=== PATIENT | male | born 1970 | race Caucasian/White ===

== ENCOUNTER 2016-11-29 01:09 | Inpatient (IN) | payer OTHER ==
[2016-11-29] VITALS (7 sets, daily range): BP systolic 126–136; BP diastolic 72–83; PULSE 56–67; RESP 18–19; TEMP 97.8; Ht 167.6 cm; Wt 86.4 kg
[~2016-11-29] VITALS: Ht 167.6 cm; Wt 86.4 kg
[2016-11-29] MEDS ORDERED: ASPIRIN 325 MG TAB PO STA (01:26)
[2016-11-29] MEDS ORDERED: morphine 4 MG/ML VIAL IV STA (01:26)
[2016-11-29] MEDS ORDERED: ONDANSETRON 4 MG INJ IV STA (01:26)
[2016-11-29 01:38] LABS: ADD SCAN DIFF NO
[2016-11-29 01:42] LABS: BASOPHILS % 0.4 % (0.0-2.0); EOSINOPHILS # 0.2 10^3/ul (0.0-0.5); EOSINOPHILS % 2.1 % (0.0-7.0); HEMATOCRIT 43.7 % (42.0-52.0); HEMOGLOBIN 15.8 g/dl (14.0-18.0); LYMPHOCYTES # 2.6 10^3/ul (0.8-2.9); LYMPHOCYTES % 28.8 % (15.0-51.0); MEAN CORPUSCULAR HEMOGLOBIN 32.5 pg (29.0-33.0); MEAN CORPUSCULAR HGB CONC 36.2 g/dl (32.0-37.0); MEAN CORPUSCULAR VOLUME 89.9 fl (82.0-101.0); MEAN PLATELET VOLUME 10.2 fl (7.4-10.4); MONOCYTE # 0.7 10^3/ul (0.3-0.9); MONOCYTES % 7.3 % (0.0-11.0); NEUTROPHIL # 5.6 10^3/ul (1.6-7.5); NEUTROPHILS % 61.1 % (39.0-77.0); PLATELET COUNT 325 10^3/UL (140-415); RED BLOOD COUNT 4.86 10^6/ul (4.70-6.10); RED CELL DISTRIBUTION WIDTH 11.9 % (11.5-14.5); WHITE BLOOD COUNT 9.1 10^3/ul (4.8-10.8)
[2016-11-29 01:54] LABS: INR 0.94; PROTIME 12.6 Sec (12.2-14.2)
[2016-11-29 01:55] LABS: PARTIAL THROMBOPLASTIN TIME 24.7 Sec (25.0-35.0)
[2016-11-29] MEDS ORDERED: ACET325T45 PO (01:55)
[2016-11-29] MEDS ORDERED: ASPI325T4 PO (01:55)
[2016-11-29 01:56] LABS: ALBUMIN 4.6 g/dl (3.3-4.9); ALBUMIN/GLOBULIN RATIO 1.21; BILIRUBIN,INDIRECT 0.5 mg/dl (0-1.1); BILIRUBIN,TOTAL 0.5 mg/dl (0.2-1.3); CALCIUM 10.9 mg/dl (8.4-10.2); CREATININE 0.78 mg/dl (0.61-1.24); POTASSIUM 3.9 mmol/L (3.5-5.1); TOTAL PROTEIN 8.4 g/dl (6.1-8.1)
[2016-11-29 02:08] LABS: TROPONIN-I 0.089 ng/ml (0.00-0.12)
--- NOTE | 2016-11-29 02:42 | RADRPT ---
PROCEDURE: CHEST - 1 VIEW CLINICAL INDICATION: 46-year-old male with chest pain. TECHNIQUE: A single frontal AP semi-erect portable view of the chest was performed. The images we re reviewed on a PACS workstation. COMPARISON: None. FINDINGS: There is a shallow inspiration accentuating the heart size. Accounting for this, the cardiomediasti nal silhouette is prominent. There is mild bibasilar subsegmental atelectasis. There is no evidenc e for an infiltrate. There is no evidence for congestive heart failure. There is no evidence for pn eumothorax. The osseous structures are intact. IMPRESSION: Shallow inspiration with mild bibasilar subsegmental atelectasis. .Abe Silverman MD, Date Time Electronically viewed and signed by .Abe Silverman MD, on 11/29/2016 02:42 .M/
--- NOTE | 2016-11-29 04:54 | ERA ---
ER Documentation Chief Complaint Date/Time DATE: 11/29/16 TIME: 04:53 Chief Complaint pressure like chest pain x 2 days HPI This is a 46-year-old male pressure-like chest pain on and off for the past 2 days. Pain is mild to moderate intensity, pressure-like, substernal no exacerbating or alleviating factors. Mild associated shortness of breath. No diaphoresis. No nausea no vomiting no fevers no chills. No other current complaints. ROS All systems reviewed and are negative except as per history of present illness. Medications Home Meds Reported Medications Aspirin* (Aspirin*) 325 Mg Tablet, 325 MG PO QID Y for PAIN, TAB 11/29/16 Acetaminophen* (Acetaminophen*) 325 Mg Tablet, 325 MG PO Q4H Y for PAIN AND OR ELEVATED TEMP, #30 TAB 11/29/16 Allergies Allergies: Coded Allergies: No Known Allergy (Unverified , 11/29/16) PMhx/Soc History of Surgery: No Anesthesia Reaction: No Hx Neurological Disorder: No Hx Respiratory Disorders: No Hx Cardiac Disorders: No Hx Psychiatric Problems: No Hx Miscellaneous Medical Probl: No Hx Alcohol Use: No Hx Substance Use: No Hx Tobacco Use: Yes Smoking Status: Current some day smoker Physical Exam Vitals Vital Signs Date Time Temp Pulse Resp B/P Pulse Ox O2 Delivery O2 Flow Rate FiO2 11/29/16 03:32 65 19 153/95 98 Nasal Cannula 2.0 11/29/16 01:27 Nasal Cannula 2 11/29/16 01:13 98.3 65 20 151/84 98 Physical Exam Const: [] Head: Atraumatic Eyes: Normal Conjunctiva ENT: Normal External Ears, Nose and Mouth. Neck: Full range of motion..~ No meningismus. Resp: Clear to auscultation bilaterally Cardio: Regular rate and rhythm, no murmurs Abd: Soft, non tender, non distended. Normal bowel sounds Skin: No petechiae or rashes Back: No midline or flank tenderness Ext: No cyanosis, or edema Neur: Awake and alert Psych: Normal Mood and Affect Result Diagram: 11/29/167 11/29/16 0127 Results 24 hrs Laboratory Tests Test 11/29/16 01:27 White Blood Count 9.110^3/ul Red Blood Count 4.8610^6/ul Hemoglobin 15.8g/dl Hematocrit 43.7% Mean Corpuscular Volume 89.9fl Mean Corpuscular Hemoglobin 32.5pg Mean Corpuscular Hemoglobin Concent 36.2g/dl Red Cell Distribution Width 11.9% Platelet Count 62517^3/UL Mean Platelet Volume 10.2fl Neutrophils % 61.1% Lymphocytes % 28.8% Monocytes % 7.3% Eosinophils % 2.1% Basophils % 0.4% Nucleated Red Blood Cells % 0.0/100WBC Neutrophils # 5.610^3/ul Lymphocytes # 2.610^3/ul Monocytes # 0.710^3/ul Eosinophils # 0.210^3/ul Basophils # 0.010^3/ul Nucleated Red Blood Cells # 0.010^3/ul Prothrombin Time 12.6Sec Prothrombin Time Ratio 1.0 INR International Normalized Ratio 0.94 Activated Partial Thromboplast Time 24.7Sec Sodium Level 137mmol/L Potassium Level 3.9mmol/L Chloride Level 99mmol/L Carbon Dioxide Level 27mmol/L Anion Gap 15 Blood Urea Nitrogen 17mg/dl Creatinine 0.78mg/dl Glucose Level 113mg/dl Calcium Level 10.9mg/dl Total Bilirubin 0.5mg/dl Direct Bilirubin 0.00mg/dl Indirect Bilirubin 0.5mg/dl Aspartate Amino Transf (AST/SGOT) 34IU/L Alanine Aminotransferase (ALT/SGPT) 63IU/L Alkaline Phosphatase 57IU/L Troponin I 0.089ng/ml B-Type Natriuretic Peptide 50PG/ML Total Protein 8.4g/dl Albumin 4.6g/dl Globulin 3.80g/dl Albumin/Globulin Ratio 1.21 Current Medications Medications (Trade) Dose Ordered Sig/Jessica Route PRN Reason Start Time Stop Time Status Last Admin Dose Admin Aspirin (Aspirin) 325 mg ONCE STAT PO 11/29/16 01:26 11/29/16 01:27 DC 11/29/16 01:43 Morphine Sulfate (morphine) 4 mg ONCE STAT IV 11/29/16 01:26 11/29/16 01:28 DC Ondansetron HCl (Zofran Inj) 4 mg ONCE STAT IV 11/29/16 01:26 11/29/16 01:28 DC Procedures/MDM EKG: Rate/Rhythm: Normal Sinus Rhythm QRS, ST, T-waves: No changes consistent w/ acute ischemia Impression: No evidence of ischemia or arrhythmia Chest X-ray 1V Interpreted by me: Soft Tissue: No acute abnormalities Bones: No acute abnormalities Mediastinum/Cardiac Silhouette/Lungs: No acute abnormalities Patient's symptoms are concerning for cardiac cause will require inpatient workup and continuous monitoring. Further w/u for ischemia, arrhythmia, PE or dissection will be deferred to the inpatient team. Accepting Care Team: Current data and ongoing care discussed. Time: 5 AM Primary Provider: Hospitalist Consulting: [XOXOXO] Outstanding Data: none Departure Diagnosis: Primary Impression: Chest pain Qualified Code: R07.9 - Chest pain, unspecified type Condition: Serious AUGUST ZHU November 29, 2016 04:54
[2016-11-29] MEDS ORDERED: NACL 0.9% 3 ML SYG IV SCH (09:00)
[2016-11-29] MEDS ORDERED: ACETAMINOPHEN 325 MG TAB PO PRN (09:00)
[2016-11-29] MEDS ORDERED: ONDANSETRON 4 MG INJ IV PRN (09:00)
[2016-11-29] MEDS ORDERED: ALBUTEROL/IPRATROPIUM (NEB) 3 ML AMP HHN PRN (09:00)
[2016-11-29] MEDS ORDERED: ENOXAPARIN 40 MG/0.4 ML SYG SC SCH (09:00)
[2016-11-29] MEDS ORDERED: morphine 2 MG INJ IV PRN (09:00)
[2016-11-29] MEDS ORDERED: ASPIRIN 81 MG TAB PO SCH (09:00)
[2016-11-29] MEDS ORDERED: NITROGLYCERIN (SL) 0.4 MG TAB SL PRN (09:00)
[2016-11-29 10:37] LABS: TROPONIN-I 0.121 ng/ml (0.00-0.12)
[2016-11-29 10:47] LABS: CK-MB 2.47 ng/ml (0.0-2.4)
[2016-11-29 15:23] LABS: CK-MB 2.12 ng/ml (0.0-2.4)
[2016-11-29 15:24] LABS: TROPONIN-I 0.115 ng/ml (0.00-0.12)
[2016-11-29] MEDS ORDERED: HEPARIN 1000 UNITS/ML 10 ML INJ IV PRN (15:30)
[2016-11-29] MEDS ORDERED: HEPARIN 1000 UNITS/ML 10 ML INJ IV ONE (15:30)
--- NOTE | 2016-11-29 16:00 | PN ---
Date/Time of Note Date/Time of Note DATE: 11/29/16 TIME: 15:52 Assessment/Plan VTE Prophylaxis VTE Prophylaxis Intervention: heparin Lines/Catheters IV [facility] Assessment/Plan Chief Complaint/Hosp Course Assessment and plan 1. Non-ST elevated myocardial infarction. Follow-up on echocardiogram. Trend serial troponin. Sales And Service Associate consulted. On BILLY inhibitor. Noted to be bradycardic. Follow-up with cardiology recommendations. Follow-up lipid panel. Continue on ASA. On heparin 2. Hypertension. Continue on antihypertensives and adjust as needed Disposition and plan: Continue on heparin drip for now. Sales And Service Associate follow. Continue telemetry monitoring. Discussed plan of care with Dr. Caal Problems: Subjective 24 Hr Interval Summary Free Text/Dictation Patient denies any chest pain at this time. No shortness of breath reported. Comfortable at present Exam/Review of Systems Vital Signs Vitals Vital Signs Date Time Temp Pulse Resp B/P Pulse Ox O2 Delivery O2 Flow Rate FiO2 11/29/16 13:00 56 11/29/16 12:12 97.8 16 133/90 Nasal Cannula 2.0 11/29/16 09:00 99 Exam Constitutional: alert, oriented Psych: no complaints Head: normocephalic Neck: non-tender, supple, No jvd Respiratory: clear to auscultation, normal air movement Cardiovascular: other (regular rate) Gastrointestinal: non-tender, soft Musculoskeletal: nl extremities to inspection Extremities: normal pulses Neurological: SOCIAL CONTACT WORKER II-XII intact, nl mental status, nl speech Skin: nl turgor Results Result Diagram: 11/29/16 0127 11/29/16 0127 Results 24 hrs Laboratory Tests Test 11/29/16 01:27 11/29/16 09:55 11/29/16 14:38 White Blood Count 9.1 Red Blood Count 4.86 Hemoglobin 15.8 Hematocrit 43.7 Mean Corpuscular Volume 89.9 Mean Corpuscular Hemoglobin 32.5 Mean Corpuscular Hemoglobin Concent 36.2 Red Cell Distribution Width 11.9 Platelet Count 325 Mean Platelet Volume 10.2 Neutrophils % 61.1 Lymphocytes % 28.8 Monocytes % 7.3 Eosinophils % 2.1 Basophils % 0.4 Nucleated Red Blood Cells % 0.0 Neutrophils # 5.6 Lymphocytes # 2.6 Monocytes # 0.7 Eosinophils # 0.2 Basophils # 0.0 Nucleated Red Blood Cells # 0.0 Prothrombin Time 12.6 Prothrombin Time Ratio 1.0 INR International Normalized Ratio 0.94 Activated Partial Thromboplast Time 24.7 L Sodium Level 137 Potassium Level 3.9 Chloride Level 99 Carbon Dioxide Level 27 Anion Gap 15 Blood Urea Nitrogen 17 Creatinine 0.78 Glucose Level 113 Calcium Level 10.9 H Total Bilirubin 0.5 Direct Bilirubin 0.00 Indirect Bilirubin 0.5 Aspartate Amino Transf (AST/SGOT) 34 Alanine Aminotransferase (ALT/SGPT) 63 Alkaline Phosphatase 57 Troponin I 0.089 0.121 *H 0.115 B-Type Natriuretic Peptide 50 Total Protein 8.4 H Albumin 4.6 Globulin 3.80 H Albumin/Globulin Ratio 1.21 Creatine Kinase 105 77 Creatine Kinase Index 2.4 2.8 Creatinine Kinase MB (Mass) 2.47 H 2.12 Medications Medications Current Medications Ondansetron HCl (Zofran Inj) 4 mg Q6H PRN IV NAUSEA AND/OR VOMITING; Start 05/08 at 09:00 Aspirin (Aspirin) 81 mg DAILY PO Last administered on 11/29/16t 10:33; Admin Dose 81 MG; Start 11/29/16 at 09:00 Nitroglycerin (Nitroglycerin (Sl Tab) 0.4 Mg) 1 tab Q5M PRN SL CHEST PAIN; Start 11/29/16 at 09:00 Acetaminophen (Tylenol Tab) 650 mg Q6H PRN PO PAIN LEVEL 1-3 OR FEVER; Start at 09:00 Morphine Sulfate (morphine) 2 mg Q4H PRN IV PAIN LEVEL 7-10; Start 11/29/16 at 09:00 BHUPINDER MANNING November 29, 2016 16:00
[2016-11-29 16:01] LABS: ADD SCAN DIFF NO
[2016-11-29 16:03] LABS: BASOPHILS % 0.5 % (0.0-2.0); EOSINOPHILS # 0.2 10^3/ul (0.0-0.5); EOSINOPHILS % 2.6 % (0.0-7.0); HEMATOCRIT 43.1 % (42.0-52.0); HEMOGLOBIN 15.5 g/dl (14.0-18.0); LYMPHOCYTES % 32.6 % (15.0-51.0); MEAN CORPUSCULAR HEMOGLOBIN 32.3 pg (29.0-33.0); MEAN CORPUSCULAR VOLUME 89.8 fl (82.0-101.0); MEAN PLATELET VOLUME 10.6 fl (7.4-10.4); MONOCYTE # 0.5 10^3/ul (0.3-0.9); MONOCYTES % 8.7 % (0.0-11.0); NEUTROPHIL # 3.5 10^3/ul (1.6-7.5); NEUTROPHILS % 55.4 % (39.0-77.0); PLATELET COUNT 274 10^3/UL (140-415); RED CELL DISTRIBUTION WIDTH 11.9 % (11.5-14.5); WHITE BLOOD COUNT 6.2 10^3/ul (4.8-10.8)
[2016-11-29 16:24] LABS: INR 0.99; PROTIME 13.1 Sec (12.2-14.2)
[2016-11-29 16:25] LABS: PARTIAL THROMBOPLASTIN TIME 26.5 Sec (25.0-35.0)
[2016-11-29] MEDS: HEPARIN 25000 UNITS/250 ML 250 ML IV SCH ×2 (16:55→23:15)
--- NOTE | 2016-11-29 18:13 | HP ---
DATE OF ADMISSION: 11/29/2016 TIME SEEN: 7 a.m. CHIEF COMPLAINT: Chest pain. HISTORY OF PRESENT ILLNESS: The patient is a 46-year-old male with no significant past medical hist ory who presented to the emergency department with a chief complaint of chest pain x2 days and worse wilian yesterday. Chest pain is mainly located in the mid chest described as pressure-like with no ra diation and with no associated nausea, vomiting or diaphoresis. He said he never had chest pain bef ore. The patient has a history of smoking intermittently throughout his life and nowadays he smokes 1 pack per week. He denied family history of heart disease but he stated his mom was diagnosed wit h a stroke at the age of 80. When the patient presented to the ER, vitals were stable. First troponin is negative. Basic labs w ere also within acceptable range and EKG with no ST-T wave abnormality. Chest x-ray also shows ____ findings. The patient was given aspirin in the ER. REVIEW OF SYSTEMS: A 12-point review of systems was performed, negative except as in the HPI. PAST MEDICAL HISTORY: Denies. PAST SURGICAL HISTORY: Denies. SOCIAL HISTORY: Smoking cigarette intermittently and now he smokes 1 pack per week. He still smoke s marijuana, but he states a while ago. He drinks 12 count of beer ____. PHYSICAL EXAMINATION: VITAL SIGNS: Stable. GENERAL: The patient lying in bed, alert, in no acute distress. able to speak in full sente nces. HEENT: No obvious head deformity. Pupils are reactive to light. Extraocular muscles intact. CARDIOVASCULAR: Regular rate and rhythm, no extra sounds. LUNGS: Clear. ABDOMEN: Soft, nontender, nondistended. Positive bowel sounds. EXTREMITIES: No edema. NEUROLOGIC: No focal deficits. LABORATORY: Patient's white count was within normal limits. First troponin negative. IMAGING: Chest x-ray: No acute findings. IMPRESSION: 1. Chest pain, rule out acute coronary syndrome. 2. Admitted to telemetry unit. He will be placed on oxygen and aspirin. His heart rate has been i n the 60s and 50s and as such I am not going to start him on a beta abran. We will check A1c, fast ing lipid panel and TSH and obtain a 2D echo. We will consider cardiology consult as needed. Further workup and management per clinical course. Dictated By: AUGUST OLIVEIRA/DEMETRI Conf#: [id number] DID#: [id number]
--- NOTE | 2016-11-29 20:10 | CONS ---
Date/Time of Note Date/Time of Note DATE: 11/29/16 TIME: 20:03 Assessment/Plan Assessment/Plan Chief Complaint/Hosp Course Assessment: NSTEMI Sinus bradycardia Tobacco use Recommendations: -continue heparin drip -continue aspirin at 325mg daily -continue atorvastatin 80mg daily, follow up lipid panel -continue lisinopril 5mg daily, up titrate as needed/tolerated -no beta-abran due to bradycardia -counselled on smoking cessation -follow up transthoracic echocardiogram -plan for coronary angiography Problems: Consultation Date/Type/Reason Admit Date/Time November 29, 2016 at 04:52 Type of Consultation: Cardiology Reason for Consultation elevated troponin Hx of Present Illness The patient is a 46 year-old male with no significant past medical history who presents with chest pain. He describes a retrosternal chest pressure that has been waxing and waning for two days prior to presentation. His EKG shows inferolateral T wave inversions and troponin is elevated at 0.121. 14 point review of systems negative other than per HPI. Psychological: no complaints Past Medical History Medical History: no pertinent history Past Surgical History Past Surgical Hx: no surgical history Family History Significant Family History: no pertinent family hx Social History Alcohol Use: occasionally Smoking Status: Current every day smoker Drug Use: marijuana Exam/Review of Systems Vital Signs Vitals Vital Signs Date Time Temp Pulse Resp B/P Pulse Ox O2 Delivery O2 Flow Rate FiO2 11/29/16 16:14 67 11/29/16 16:02 98.1 18 126/72 96 11/29/16 12:25 Room Air 11/29/16 12:12 2.0 Exam Constitutional: alert, well developed Psych: nl mood/affect, no complaints Head: atraumatic, normocephalic Eyes: nl conjunctiva, nl lids ENMT: nl external ears & nose, nl nasal mucosa & septum Neck: non-tender, supple, No jvd Respiratory: clear to auscultation, normal air movement Cardiovascular: regular rate and rhythm Gastrointestinal: non-tender, soft Musculoskeletal: nl extremities to inspection Extremities: No clubbing, No cyanosis, No edema Neurological: nl mental status, nl speech Results Result Diagram: 11/29/16 1540 11/29/16 0127 Results 24 hrs Laboratory Tests Test 11/29/16 01:27 11/29/16 09:55 11/29/16 14:38 11/29/16 15:40 White Blood Count 9.1 6.2 # Red Blood Count 4.86 4.80 Hemoglobin 15.8 15.5 Hematocrit 43.7 43.1 Mean Corpuscular Volume 89.9 89.8 Mean Corpuscular Hemoglobin 32.5 32.3 Mean Corpuscular Hemoglobin Concent 36.2 36.0 Red Cell Distribution Width 11.9 11.9 Platelet Count 325 274 Mean Platelet Volume 10.2 10.6 H Neutrophils % 61.1 55.4 Lymphocytes % 28.8 32.6 Monocytes % 7.3 8.7 Eosinophils % 2.1 2.6 Basophils % 0.4 0.5 Nucleated Red Blood Cells % 0.0 0.0 Neutrophils # 5.6 3.5 Lymphocytes # 2.6 2.0 Monocytes # 0.7 0.5 Eosinophils # 0.2 0.2 Basophils # 0.0 0.0 Nucleated Red Blood Cells # 0.0 0.0 Prothrombin Time 12.6 13.1 Prothrombin Time Ratio 1.0 1.0 INR International Normalized Ratio 0.94 0.99 Activated Partial Thromboplast Time 24.7 L 26.5 Sodium Level 137 Potassium Level 3.9 Chloride Level 99 Carbon Dioxide Level 27 Anion Gap 15 Blood Urea Nitrogen 17 Creatinine 0.78 Glucose Level 113 Calcium Level 10.9 H Total Bilirubin 0.5 Direct Bilirubin 0.00 Indirect Bilirubin 0.5 Aspartate Amino Transf (AST/SGOT) 34 Alanine Aminotransferase (ALT/SGPT) 63 Alkaline Phosphatase 57 Troponin I 0.089 0.121 *H 0.115 B-Type Natriuretic Peptide 50 Total Protein 8.4 H Albumin 4.6 Globulin 3.80 H Albumin/Globulin Ratio 1.21 Creatine Kinase 105 77 Creatine Kinase Index 2.4 2.8 Creatinine Kinase MB (Mass) 2.47 H 2.12 Medications Medications Current Medications Ondansetron HCl (Zofran Inj) 4 mg Q6H PRN IV NAUSEA AND/OR VOMITING; Start 05/08 at 09:00 Aspirin (Aspirin) 81 mg DAILY PO Last administered on 11/29/16t 10:33; Admin Dose 81 MG; Start 11/29/16 at 09:00 Nitroglycerin (Nitroglycerin (Sl Tab) 0.4 Mg) 1 tab Q5M PRN SL CHEST PAIN; Start 11/29/16 at 09:00 Acetaminophen (Tylenol Tab) 650 mg Q6H PRN PO PAIN LEVEL 1-3 OR FEVER; Start at 09:00 Morphine Sulfate (morphine) 2 mg Q4H PRN IV PAIN LEVEL 7-10; Start 11/29/16 at 09:00 Lisinopril (Zestril) 5 mg DAILY PO ; Start 11/30/16 at 09:00 Atorvastatin Calcium (Lipitor) 80 mg HS PO ; Start 11/29/16 at 21:00 SYLVIA KELLEY MD November 29, 2016 20:10
--- NOTE | 2016-11-29 20:46 | RADRPT ---
Echocardiogram Report Patient Name: JAD SANTOS Gender: Male Date: 1970 Study Date: 29-Nov-2016 Mechanical Manufacturing Technician: [facility] Location: [facility] Ref. Physician: AUGUST REYES Quality: Good Procedures: Transthoracic echocardiogram with complete 2D, M-Mode, and doppler examination. Indications: Chest Pain. 2D/M Mode Doppler Measurement Value Normal Ranges Measurement Value Normal Ranges LVIDd 2D 4.7 3.5 - 5.6 cm AV Peak Yogesh 1.1 m/sec LVIDs 2D 3.0 2.1 - 4.1 cm AV Peak PG 4.4 mmHg LVPWd 2D 1.1 0.6 - 1.1 cm LVOT Peak Yogesh 1.0 m/sec IVSd 2D 1.1 0.6 - 1.1 cm LVOT Peak PG 4.0 mmHg AoR Diam 2D 2.2 2.0 - 3.7 cm MV E Peak Yogesh 0.7 m/sec EDV 2D 101.3 cm3 MV A Peak Yogesh 0.6 m/sec ESV 2D 26.8 cm3 MV E/A 1.3 LA Dimen 2D 4.0 2.3 - 4.0 cm MV Decel Time 267 msec MV Decel Treasure 3 MV E/A 1.3 Findings Left Ventricle: Normal left ventricular systolic function. Normal left ventricular cavity size. Left ventricular wall thickness upper limits of normal. Ejection fraction is visually estimated at 5560 %. Right Ventricle: Normal right ventricular size. Normal right ventricular systolic function. Left Atrium: The left atrium is normal in size. Right Atrium: The right atrium is normal in size. Mitral Valve: Mitral valve leaflets appear mildly thickened. Mild mitral valve regurgitation. Aortic Valve: Normal appearance of the aortic valve. No significant aortic stenosis or insufficiency. Tricuspid Valve: Normal appearance and function of the tricuspid valve with trace physiologic regurgitation. Pulmonic Valve: Pulmonic valve not well visualized. There is trace pulmonic regurgitation. Pericardium: Normal pericardium with no significant pericardial effusion. Aorta: Normal aortic root. IVC: Normal size and normal respiratory collapse consistent with normal right atrial pressure. Conclusions 1.The left ventricle is normal in size and systolic function. 2.Estimated left ventricular ejection fraction of 55-60%. Electronically Signed By: Nathan Wolfe 10-May-2017 20:46:29 -0700 Patient Name: JAD SANTOS Study Date: 29-Nov-2016 [id number]
[2016-11-29] MEDS ORDERED: ATORVASTATIN 80 MG TAB PO SCH (21:00)
[2016-11-30] VITALS (18 sets, daily range): BP systolic 104–131; BP diastolic 58–89; PULSE 59–73; RESP 17–26
[2016-11-30 08:29] LABS: ADD SCAN DIFF NO
[2016-11-30 08:53] LABS: BASOPHIL # 0.1 10^3/ul (0.0-0.1); BASOPHILS % 0.7 % (0.0-2.0); EOSINOPHILS # 0.2 10^3/ul (0.0-0.5); EOSINOPHILS % 2.8 % (0.0-7.0); HEMATOCRIT 43.5 % (42.0-52.0); HEMOGLOBIN 14.9 g/dl (14.0-18.0); LYMPHOCYTES # 2.5 10^3/ul (0.8-2.9); LYMPHOCYTES % 38.1 % (15.0-51.0); MEAN CORPUSCULAR HEMOGLOBIN 31.8 pg (29.0-33.0); MEAN CORPUSCULAR HGB CONC 34.3 g/dl (32.0-37.0); MEAN CORPUSCULAR VOLUME 92.8 fl (82.0-101.0); MEAN PLATELET VOLUME 10.8 fl (7.4-10.4); MONOCYTE # 0.5 10^3/ul (0.3-0.9); MONOCYTES % 8.1 % (0.0-11.0); NEUTROPHIL # 3.3 10^3/ul (1.6-7.5); PLATELET COUNT 254 10^3/UL (140-415); RED BLOOD COUNT 4.69 10^6/ul (4.70-6.10); RED CELL DISTRIBUTION WIDTH 12.2 % (11.5-14.5); WHITE BLOOD COUNT 6.7 10^3/ul (4.8-10.8)
[2016-11-30] MEDS ORDERED: LISINOPRIL 5 MG TAB PO SCH (09:00)
[2016-11-30] MEDS ORDERED: ASPIRIN 325 MG TAB PO SCH (09:00)
[2016-11-30 09:17] LABS: ALBUMIN 4.1 g/dl (3.3-4.9)
[2016-11-30 09:18] LABS: POTASSIUM 4.3 mmol/L (3.5-5.1)
[2016-11-30 09:20] LABS: ALBUMIN/GLOBULIN RATIO 1.17; BILIRUBIN,INDIRECT 0.3 mg/dl (0-1.1); BILIRUBIN,TOTAL 0.3 mg/dl (0.2-1.3); CREATININE 0.8 mg/dl (0.61-1.24); TOTAL PROTEIN 7.6 g/dl (6.1-8.1)
[2016-11-30 09:21] LABS: CALCIUM 9.1 mg/dl (8.4-10.2); CHOL/HDL RATIO 5.5 RATIO
[2016-11-30] MEDS: HEPARIN 25000 UNITS/250 ML 250 ML IV SCH (09:55)
--- NOTE | 2016-11-30 10:17 | PN ---
Date/Time of Note Date/Time of Note DATE: 11/30/16 TIME: 10:15 Assessment/Plan VTE Prophylaxis VTE Prophylaxis Intervention: heparin Lines/Catheters IV Catheter Type (from Nrs): Peripheral IV Assessment/Plan Chief Complaint/Hosp Course Assessment and plan 1. Non-ST elevated myocardial infarction.Patient seen with ejection fraction of 55-60% per echocardiogram. On BILLY inhibitor. Noted to be bradycardic. Plan for coronary angiography 2. Hypertension. Continue on antihypertensives and adjust as needed 3. Dyslipidemia. On statin medication Disposition and plan: Continue on heparin drip for now. Plan for coronary angiography. Discussed plan of care with Dr. Caal Problems: Subjective 24 Hr Interval Summary Free Text/Dictation Denies any chest pain at this time. Comfortable at present Exam/Review of Systems Vital Signs Vitals Vital Signs Date Time Temp Pulse Resp B/P Pulse Ox O2 Delivery O2 Flow Rate FiO2 11/30/16 08:42 62 11/30/16 07:41 98.0 20 121/65 97 11/29/16 12:25 Room Air 11/29/16 12:12 2.0 Intake and Output 11/29/16 11/29/16 11/30/16 15:00 23:00 07:00 Intake Total 900 ml 520 ml Balance 900 ml 520 ml Exam Constitutional: alert, oriented Psych: nl mood/affect Head: normocephalic Neck: No jvd Respiratory: normal air movement Cardiovascular: regular rate and rhythm Gastrointestinal: non-tender, soft Musculoskeletal: nl extremities to inspection Extremities: normal pulses Neurological: nl mental status, nl speech Results Result Diagram: 11/30/16 0750 11/30/16 0750 Results 24 hrs Laboratory Tests Test 11/29/16 14:38 11/29/16 15:40 11/29/16 21:30 11/30/16 07:50 Creatine Kinase 77 Creatine Kinase Index 2.8 Creatinine Kinase MB (Mass) 2.12 Troponin I 0.115 White Blood Count 6.2 # 6.7 Red Blood Count 4.80 4.69 L Hemoglobin 15.5 14.9 Hematocrit 43.1 43.5 Mean Corpuscular Volume 89.8 92.8 Mean Corpuscular Hemoglobin 32.3 31.8 Mean Corpuscular Hemoglobin Concent 36.0 34.3 Red Cell Distribution Width 11.9 12.2 Platelet Count 274 254 Mean Platelet Volume 10.6 H 10.8 H Neutrophils % 55.4 50.0 Lymphocytes % 32.6 38.1 Monocytes % 8.7 8.1 Eosinophils % 2.6 2.8 Basophils % 0.5 0.7 Nucleated Red Blood Cells % 0.0 0.0 Neutrophils # 3.5 3.3 Lymphocytes # 2.0 2.5 Monocytes # 0.5 0.5 Eosinophils # 0.2 0.2 Basophils # 0.0 0.1 Nucleated Red Blood Cells # 0.0 0.0 Prothrombin Time 13.1 Prothrombin Time Ratio 1.0 INR International Normalized Ratio 0.99 Activated Partial Thromboplast Time 26.5 42.2 H 51.1 H Sodium Level 142 Potassium Level 4.3 Chloride Level 105 Carbon Dioxide Level 25 Anion Gap 16 Blood Urea Nitrogen 17 Creatinine 0.80 Glucose Level 107 Hemoglobin A1c 5.5 Calcium Level 9.1 Magnesium Level 2.0 Total Bilirubin 0.3 Direct Bilirubin 0.00 Indirect Bilirubin 0.3 Aspartate Amino Transf (AST/SGOT) 34 Alanine Aminotransferase (ALT/SGPT) 66 Alkaline Phosphatase 57 Total Protein 7.6 Albumin 4.1 Globulin 3.50 H Albumin/Globulin Ratio 1.17 Triglycerides Level 345 H Cholesterol Level 206 H LDL Cholesterol, Calculated 100 HDL Cholesterol 37 Cholesterol/HDL Ratio 5.5 Thyroid Stimulating Hormone (TSH) Pending Medications Medications Current Medications Ondansetron HCl (Zofran Inj) 4 mg Q6H PRN IV NAUSEA AND/OR VOMITING; Start 05/08 at 09:00 Nitroglycerin (Nitroglycerin (Sl Tab) 0.4 Mg) 1 tab Q5M PRN SL CHEST PAIN; Start 11/29/16 at 09:00 Acetaminophen (Tylenol Tab) 650 mg Q6H PRN PO PAIN LEVEL 1-3 OR FEVER; Start at 09:00 Morphine Sulfate (morphine) 2 mg Q4H PRN IV PAIN LEVEL 7-10; Start 11/29/16 at 09:00 Lisinopril (Zestril) 5 mg DAILY PO Last administered on 11/30/16 09:53; Admin Dose 5 MG; Start 11/30/16 at 09:00 Atorvastatin Calcium (Lipitor) 80 mg HS PO Last administered on 11/29/16 21:24 ; Admin Dose 80 MG; Start 11/29/16 at 21:00 Aspirin (Aspirin) 325 mg DAILY PO Last administered on 11/30/16t 09:53; Admin Dose 325 MG; Start 11/30/16 at 09:00 BHUPINDER MANNING November 30, 2016 10:17
[2016-11-30] MEDS ORDERED: IODIXANOL LOCM 100 ML BTL ONE ×2 (10:48→11:50)
[2016-11-30] MEDS ORDERED: LIDOCAINE 1% (MDV) 20 ML INJ ONE (10:48)
[2016-11-30] MEDS ORDERED: HEPARIN 1000 UNITS/ML 10 ML INJ ONE ×2 (10:48→11:50)
[2016-11-30] MEDS ORDERED: NITROGLYCERIN (IC) 100 MCG/ML INJ ONE (10:49)
[2016-11-30] MEDS ORDERED: FENTAnyl 50 MCG/ML VIAL ONE (10:49)
[2016-11-30] MEDS ORDERED: VERAPAMIL 5 MG INJ ONE (10:49)
[2016-11-30] MEDS ORDERED: MIDAZOLAM 1 MG/ML 2 ML INJ ONE (10:49)
[2016-11-30] MEDS ORDERED: TICAGRELOR 90 MG TABLET ONE (11:33)
--- NOTE | 2016-11-30 12:56 | OPR ---
Date/Time of Note Date/Time of Note DATE: 11/30/16 TIME: 12:40 Operative Report Free Text/Dictation Procedure Date: 11/30/2016 Procedures Performed: 1)Left heart catheterization with selective left and right coronary angiography. 2)Balloon angioplasty and stenting of the mid RCA with a Synergy 4.0 x 24 drug eluting stent. 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 The procedure site was prepped and draped in usual manner. The patient was premedicated with versed 1 mg and fentanyl 25 mcg. 2mL lidocaine was injected into the right wrist. Next using the posterior wall technique, the 6/ 5 gambian sheath was inserted into the right radial artery. Next using the JL3.5 and JR4, selective angiography of the left and right coronary arteries were obtained. The decision was made to proceed with PCI of the RCA as this was the culprit by severity and location by EKG changes. A 6 gambian JR4 guide was advanced and engaged into the right coronary artery. After appropriate anticoagulation and antiplatelets were given, the PT2 moderate support angioplasty wire was advanced past the lesion. Next the 2.5 X 12 balloon was used to dilate the lesion times 2 at a maximum of 12 berry. As the stent could not be advanced, the 3.0 x 12 balloon was used to dilate the lesion times 2 up to 12 berry. The stent again would not advance and so a Mailman tana wire was placed. Next over the PT wire, the Synergy 4.0 x 24 stent was advanced to the lesion and deployed at 11 berry after the Mailman was removed. Next the stent was post dilated with the 4.5 x 12 and 4.5 x 8 noncompliant balloon times 4 at a maximum of 14 berry. Final angiography revealed HÉCTOR 3 flow, no edge dissection, and appropriate stent expansion. Next all equipment was removed and hemostasis was achieved by TR band. Findings: Severe single vessel CAD of the mid RCA s/p PCI. 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 The fistula originates from the left coronary cusp (separate origin from left main) and connects to the ramus/ OM and then to the PA. Anatomy/Hemodynamics: Left main:normal LAD: mild luminal irregularities Diagonal:mild luminal irregularities Circumflex:mild luminal irregularities Obtuse marginal:mild luminal irregularities RCA:mid 95% disease in a very large dominant vessel. 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 The fistula originates from the left coronary cusp (separate origin from left main) and connects to the ramus/OM and then to the PA. LV angiography:not done. 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 LEONEL COLE November 30, 2016 12:56
[2016-11-30 12:57] LABS: THYROID STIMULATING HORMONE 9.71 MIU/L (0.465-4.680)
[2016-11-30] MEDS ORDERED: morphine 2 MG INJ IV PRN (13:00)
[2016-11-30] MEDS: SOD CHLORIDE 0.9% 1,000 ML IV SCH (13:30)
--- NOTE | 2016-11-30 14:41 | CONS ---
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 - unlikely of clinical significance Sinus bradycardia Tobacco use - counselled on smoking cessation Recommendations: -echocardiogram showed normal LVEF 60-65% -ticagrelor 90mg BID for at least one year -aspirin 81mg daily indefinitely -lipid panel noted, decrease atorvastatin to 40mg daily -increase lisinopril to 10mg daily, up titrate as needed/tolerated -if recurrent symptoms, can consider cardiac stress testing to evaluate significance of coronary to pulmonary artery fistula Problems: Consultation Date/Type/Reason Admit Date/Time November 29, 2016 at 04:52 Initial Consult Date Type of Consultation: Cardiology 24 HR Interval Summary Free Text/Dictation Coronary angiogram today showed 95% mid RCA stenosis, status post drug-eluting stent. 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 The fistula originates from the left coronary cusp (separate origin from left main) and connects to the ramus/OM and then to the pulmonary artery. Doing well post-procedure. No chest pain or shortness of breath. Detailed Summary Additional Comments 14 point review of systems without changes. Exam/Review of Systems Vital Signs Vitals Vital Signs Date Time Temp Pulse Resp B/P Pulse Ox O2 Delivery O2 Flow Rate FiO2 11/30/16 14:00 59 19 117/58 94 Room Air 11/30/16 13:30 98.0 11/29/16 12:12 2.0 Intake and Output 11/29/16 11/29/16 11/30/16 15:00 23:00 07:00 Intake Total 900 ml 520 ml Balance 900 ml 520 ml Exam Constitutional: alert, well developed Psych: nl mood/affect, no complaints Head: atraumatic, normocephalic Eyes: nl conjunctiva, nl lids ENMT: nl external ears & nose, nl nasal mucosa & septum Neck: non-tender, supple, No jvd Respiratory: clear to auscultation, normal air movement Cardiovascular: regular rate and rhythm Gastrointestinal: non-tender, soft Musculoskeletal: nl extremities to inspection Extremities: No clubbing, No cyanosis, No edema Neurological: nl mental status, nl speech Results Result Diagram: 11/30/16 0750 11/30/16 0750 Results 24 hrs Laboratory Tests Test 11/29/16 14:38 11/29/16 15:40 11/29/16 21:30 11/30/16 07:50 Creatine Kinase 77 Creatine Kinase Index 2.8 Creatinine Kinase MB (Mass) 2.12 Troponin I 0.115 White Blood Count 6.2 # 6.7 Red Blood Count 4.80 4.69 L Hemoglobin 15.5 14.9 Hematocrit 43.1 43.5 Mean Corpuscular Volume 89.8 92.8 Mean Corpuscular Hemoglobin 32.3 31.8 Mean Corpuscular Hemoglobin Concent 36.0 34.3 Red Cell Distribution Width 11.9 12.2 Platelet Count 274 254 Mean Platelet Volume 10.6 H 10.8 H Neutrophils % 55.4 50.0 Lymphocytes % 32.6 38.1 Monocytes % 8.7 8.1 Eosinophils % 2.6 2.8 Basophils % 0.5 0.7 Nucleated Red Blood Cells % 0.0 0.0 Neutrophils # 3.5 3.3 Lymphocytes # 2.0 2.5 Monocytes # 0.5 0.5 Eosinophils # 0.2 0.2 Basophils # 0.0 0.1 Nucleated Red Blood Cells # 0.0 0.0 Prothrombin Time 13.1 Prothrombin Time Ratio 1.0 INR International Normalized Ratio 0.99 Activated Partial Thromboplast Time 26.5 42.2 H 51.1 H Sodium Level 142 Potassium Level 4.3 Chloride Level 105 Carbon Dioxide Level 25 Anion Gap 16 Blood Urea Nitrogen 17 Creatinine 0.80 Glucose Level 107 Hemoglobin A1c 5.5 Calcium Level 9.1 Magnesium Level 2.0 Total Bilirubin 0.3 Direct Bilirubin 0.00 Indirect Bilirubin 0.3 Aspartate Amino Transf (AST/SGOT) 34 Alanine Aminotransferase (ALT/SGPT) 66 Alkaline Phosphatase 57 Total Protein 7.6 Albumin 4.1 Globulin 3.50 H Albumin/Globulin Ratio 1.17 Triglycerides Level 345 H Cholesterol Level 206 H LDL Cholesterol, Calculated 100 HDL Cholesterol 37 Cholesterol/HDL Ratio 5.5 Thyroid Stimulating Hormone (TSH) 9.710 H Medications Medications Current Medications Ondansetron HCl (Zofran Inj) 4 mg Q6H PRN IV NAUSEA AND/OR VOMITING; Start 05/08 at 09:00 Nitroglycerin (Nitroglycerin (Sl Tab) 0.4 Mg) 1 tab Q5M PRN SL CHEST PAIN; Start 11/29/16 at 09:00 Acetaminophen (Tylenol Tab) 650 mg Q6H PRN PO PAIN LEVEL 1-3 OR FEVER; Start at 09:00 Morphine Sulfate (morphine) 2 mg Q4H PRN IV PAIN LEVEL 7-10; Start 11/29/16 at 09:00 Lisinopril (Zestril) 5 mg DAILY PO Last administered on 11/30/16 09:53; Admin Dose 5 MG; Start 11/30/16 at 09:00 Atorvastatin Calcium (Lipitor) 80 mg HS PO Last administered on 11/29/16 21:24 ; Admin Dose 80 MG; Start 11/29/16 at 21:00 Morphine Sulfate 2 mg 2 mg Q2H PRN IV FOR NON CARDIAC PAIN (4-10); Start at 13:00 Sodium Chloride (NS) 1,000 ml @ 75 mls/hr [id number] IV Last administered on 11/30 13:30; Admin Dose 75 MLS/HR; Start 11/30/16 at 12:39; Stop 12/01/16 at 01: 58 Ticagrelor (Brilinta) 90 mg BID PO ; Start 11/30/16 at 21:00 Aspirin (Aspirin) 81 mg DAILY PO ; Start 12/01/16 at 09:00 SYLVIA KELLEY MD November 30, 2016 14:41
[2016-11-30] MEDS ORDERED: ATORVASTATIN 40 MG TAB PO SCH (21:00)
[2016-11-30] MEDS: TICAGRELOR 90 MG TABLET PO SCH (21:11)
[2016-12-01] VITALS (15 sets, daily range): BP systolic 92–132; BP diastolic 47–80; PULSE 56–67; RESP 13–22
[2016-12-01] MEDS: SOD CHLORIDE 0.9% 1,000 ML IV SCH (01:58)
[2016-12-01 06:18] LABS: ADD SCAN DIFF NO
[2016-12-01 06:28] LABS: BASOPHILS % 0.3 % (0.0-2.0); EOSINOPHILS # 0.2 10^3/ul (0.0-0.5); HEMOGLOBIN 13.7 g/dl (14.0-18.0); LYMPHOCYTES # 2.3 10^3/ul (0.8-2.9); LYMPHOCYTES % 23.1 % (15.0-51.0); MEAN CORPUSCULAR HEMOGLOBIN 31.6 pg (29.0-33.0); MEAN CORPUSCULAR HGB CONC 34.3 g/dl (32.0-37.0); MEAN CORPUSCULAR VOLUME 92.4 fl (82.0-101.0); MEAN PLATELET VOLUME 10.4 fl (7.4-10.4); MONOCYTE # 0.6 10^3/ul (0.3-0.9); MONOCYTES % 6.6 % (0.0-11.0); NEUTROPHIL # 6.6 10^3/ul (1.6-7.5); NEUTROPHILS % 67.7 % (39.0-77.0); PLATELET COUNT 244 10^3/UL (140-415); RED BLOOD COUNT 4.33 10^6/ul (4.70-6.10); RED CELL DISTRIBUTION WIDTH 12.3 % (11.5-14.5); WHITE BLOOD COUNT 9.7 10^3/ul (4.8-10.8)
[2016-12-01 07:03] LABS: POTASSIUM 3.9 mmol/L (3.5-5.1)
[2016-12-01 07:06] LABS: CREATININE 0.65 mg/dl (0.61-1.24)
[2016-12-01 07:07] LABS: CALCIUM 8.6 mg/dl (8.4-10.2)
[2016-12-01] MEDS: TICAGRELOR 90 MG TABLET PO SCH (08:10)
[2016-12-01] MEDS ORDERED: LISINOPRIL 10 MG TAB PO SCH (09:00)
[2016-12-01] MEDS ORDERED: ASPIRIN 81 MG TAB PO SCH (09:00)
[2016-12-01] MEDS ORDERED: ATOR40TA68 PO (11:48)
[2016-12-01] MEDS ORDERED: TICA90TA PO (11:48)
[2016-12-01] MEDS ORDERED: ASPI81TA3 PO (11:48)
[2016-12-01] MEDS ORDERED: LISI10TA2 PO (11:48)
--- NOTE | 2016-12-01 11:50 | PDOCDIS ---
Discharge Instructions DIAGNOSIS Discharge Diagnosis: 1. NSTEMI 2. dyslipidemia CONDITION Patient Condition: Stable HOME CARE INSTRUCTIONS: Special Diet: Cardiac FOLLOW UP/APPOINTMENTS Appointments 1. Follow up with Dr. Nathan Wolfe in one week 2. Follow up with your primary care provider in 1-2 weeks BHUPINDER MANNING December 01, 2016 11:50
--- NOTE | 2016-12-01 15:56 | DS ---
Date/Time of Note Date/Time of Note DATE: 12/01/16 TIME: 15:49 Discharge Summary Admission/Discharge Info Admit Date/Time November 29, 2016 at 04:52 Discharge Date/Time December 01, 2016 at 14:21 Final Diagnosis 1. Non-ST elevated myocardial infarction. 2. Hypertension. 3. Dyslipidemia. 4. 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 Dr. Nathan Wolfe 2. [facility] Course This is a 46-year-old male with no reported past medical history who came to [facility] due to reports of chest pain for 2 days' duration. Continue the patient and his chest pain mainly was located in the mid portion of his chest and described as pressure-like with no radiation. He had no nausea or vomiting. Fever denied any past history of chest pain. He of note does have an extensive history of smoking throughout his life now smokes 1 pack per week. He denies any family of heart disease. Patient did have serial troponins drawn which were positive on the second. He was seen by restaurant attendant. He had echocardiogram done that did show him to have an ejection fraction of 55-60%. Patient was seen with non-ST elevated myocardial infarction. He was seen by restaurant attendant. Patient was seen with 95% disease stenosis in the RCA. He did receive a stent in this area. There is also noted to have a coronary artery pulmonary artery fistula. The fistula was noted to be originating from the left coronary cusp (separate origin from left main) and connected to the ramus/OM and then to the PA. Patient was observed for this. No tentative plan for intervention for this issue at this time. Was otherwise optimized medically. He is continued on antihypertensives for hypertension and optimized or his CAD. He also had dyslipidemia for which she was started on statin medication. During his course of stay did improve. He denied further chest pain. The plan of care was discussed with the patient and patient did verbalize understanding. On the day of discharge patient was in stable condition Discussed plan of care with Discharge process time is 40 minutes Home Meds Active Scripts Ticagrelor* (Brilinta*) 90 Mg Tablet, 90 MG PO BID for 90 Days, TAB Prov:BHUPINDER MANNING 12/01/16 Lisinopril* (Lisinopril*) 10 Mg Tablet, 10 MG PO DAILY for 30 Days, TAB Prov:BHUPINDER MANNING 12/01/16 Atorvastatin* (Atorvastatin*) 40 Mg Tablet, 40 MG PO HS for 90 Days, TAB Prov:BRITTANY MANNINGNELL 12/01/16 Aspirin (Aspirin) 81 Mg Chew, 81 MG PO DAILY for 90 Days, TAB Prov:BHUPINDER MANNING 12/01/16 Reported Medications Acetaminophen* (Acetaminophen*) 325 Mg Tablet, 325 MG PO Q4H Y for PAIN AND OR ELEVATED TEMP, #30 TAB 11/29/16 Discontinued Reported Medications Aspirin* (Aspirin*) 325 Mg Tablet, 325 MG PO QID Y for PAIN, TAB 11/29/16 Follow-up Plan CONDITION Patient Condition: Stable HOME CARE INSTRUCTIONS: Special Diet: Cardiac FOLLOW UP/APPOINTMENTS Appointments 1. Follow up with Dr. Nathan Wolfe in one week 2. Follow up with your primary care provider in 1-2 weeks Pending Labs Laboratory Tests Test 12/01/16 05:50 White Blood Count 9.710^3/ul (4.8-10.8) Red Blood Count 4.3310^6/ul (4.70-6.10) Hemoglobin 13.7g/dl (14.0-18.0) Hematocrit 40.0% (42.0-52.0) Mean Corpuscular Volume 92.4fl (82.0-101.0) Mean Corpuscular Hemoglobin 31.6pg (29.0-33.0) Mean Corpuscular Hemoglobin Concent 34.3g/dl (32.0-37.0) Red Cell Distribution Width 12.3% (11.5-14.5) Platelet Count 10525^3/UL (140-415) Mean Platelet Volume 10.4fl (7.4-10.4) Neutrophils % 67.7% (39.0-77.0) Lymphocytes % 23.1% (15.0-51.0) Monocytes % 6.6% (0.0-11.0) Eosinophils % 2.0% (0.0-7.0) Basophils % 0.3% (0.0-2.0) Nucleated Red Blood Cells % 0.0/100WBC (0.0-0.0) Neutrophils # 6.610^3/ul (1.6-7.5) Lymphocytes # 2.310^3/ul (0.8-2.9) Monocytes # 0.610^3/ul (0.3-0.9) Eosinophils # 0.210^3/ul (0.0-0.5) Basophils # 0.010^3/ul (0.0-0.1) Nucleated Red Blood Cells # 0.010^3/ul (0.0-0.0) Sodium Level 139mmol/L (135-144) Potassium Level 3.9mmol/L (3.5-5.1) Chloride Level 105mmol/L (97-110) Carbon Dioxide Level 24mmol/L (21-31) Anion Gap 14 (8-16) Blood Urea Nitrogen 12mg/dl (7-20) Creatinine 0.65mg/dl (0.61-1.24) Glucose Level 93mg/dl (70-220) Calcium Level 8.6mg/dl (8.4-10.2) BHUPINDER MANNING December 01, 2016 15:56
== END 2016-12-01 14:21 | disposition home or self-care (01) | DRG 247 ==
LOC: E/R 01:09 → MS4 04:52 → ICU 11-30 13:10
PROVIDERS: ADMIT Internal Medicine; ATTEND Internal Medicine
PROC: 027034Z Dilation of Coronary Artery, One Artery with Drug-eluting Intraluminal Device, Percutaneous Approach (ICD-10-PCS; principal; 2016-11-30)
PROC: 4A023N7 Measurement of Cardiac Sampling and Pressure, Left Heart, Percutaneous Approach (ICD-10-PCS; 2016-11-30)
DX: I21.4 Non-ST elevation (NSTEMI) myocardial infarction (principal); I25.41 Coronary artery aneurysm; I10 Essential (primary) hypertension; R00.1 Bradycardia, unspecified; F17.200 Nicotine dependence, unspecified, uncomplicated; E78.5 Hyperlipidemia, unspecified; I25.10 Atherosclerotic heart disease of native coronary artery without angina pectoris
CPT/HCPCS: 36415; 71010; 80048; 80053; 80061; 82550; 82553; 83036; 83735; 83880; 84443; 84484; 85025; 85610; 85730; 87081; 93005; 93306; 93458; 96372; C1725; C1769; C1874; C1887; C9600; J1644; J1650; J2250; J3010; J7030; Q9967